=== PATIENT | female | born 1990 | race Caucasian/White ===

== ENCOUNTER 2019-11-10 17:36 | Emergency (ER) | payer BC, OTHER ==
--- NOTE | 2019-11-10 17:54 | ER Document Report ---
ED Medical Screen (RME) - General Chief Complaint: Vaginal Bleeding Stated Complaint: ABDOMINAL PAIN/VAGINAL BLEEDING Time Seen by Provider: 11/10/19 17:52 Primary Care Provider: DAKOTAH DUTTA [Primary Care Provider] - Follow up as needed Mode of Arrival: Ambulatory Information source: Patient Notes: 29-year-old female presented to ED for complaint of lower abdominal/pelvic pain. She states she is been having it for 4 days this is the fourth day. She states she is 1 para 0. She states she has had more headaches than normal. States she did fall yesterday but that is not any change. She states she did have a little bit of vaginal bleeding today. She states she thinks she is O+ but has not had a blood test here before. She does not smoke drink or use any drugs. She states she did have an ultrasound earlier in the and everything was okay at that time. I have greeted and performed a rapid initial assessment of this patient. A com prehensive ED assessment and evaluation of the patient, analysis of test results and completion of medical decision making process will be conducted by an additional ED providers. - Related Data Allergies/Adverse Reactions: No Known Allergies Allergy (Verified 07/27/12 15:27) Past Medical History - Immunizations Immunizations up to date: Yes Hx Diphtheria, Pertussis, Tetanus Vaccination: Yes Physical Exam - Vital signs Vitals: Temp Pulse Resp BP Pulse Ox 98.5 F 84 16 97/67 L 100 11/10/19 17:42 11/10/19 17:42 11/10/19 17:42 11/10/19 17:42 11/10/19 17:42 Course - Vital Signs Vital signs: Temp Pulse Resp BP Pulse Ox 98.5 F 84 16 97/67 L 100 11/10/19 17:42 11/10/19 17:42 11/10/19 17:42 11/10/19 17:42 11/10/19 17:42 Doctor's Discharge - Discharge Referrals: DAKOTAH DUTTA [Primary Care Provider] - Follow up as needed
--- NOTE | 2019-11-10 18:12 | ER Document Report ---
ED GI/ - General Mode of Arrival: Ambulatory Information source: Patient TRAVEL OUTSIDE OF THE [place] IN LAST 30 DAYS: No - Related Data Home Medications: prenatals <LANI CARR - Last Filed: 11/10/19 20:10> <RIKA DELGADO - Last Filed: 11/10/19 20:50> - General Chief Complaint: Abdominal Pain Stated Complaint: ABDOMINAL PAIN/VAGINAL BLEEDING Time Seen by Provider: 11/10/19 17:52 Primary Care Provider: [facility] [Provider Group] - Follow up as needed Notes: 29-year-old female who states she is 16 weeks presents to the emergency room with persistent pelvic pain for the past 4 days. States she has been seen for in the past by her RELAY SHOP TESTER and was told it was ligament pain however she states the pain is gotten progressively worse. Is also had a headache for 2 days. States that the is located at the base of her posterior scalp. She denies any head trauma or head injuries. Patient states she did have one dizzy episode yesterday where she fell to the ground landed on her knees denies hitting her head, denies hitting her belly. Also states she had 1 episode of spotting earlier today not currently bleeding. Denies nausea, vomiting, states her OB care is up-to-date with a normal recent ultrasound. Did not call her RELAY SHOP TESTER today. (LANI CARR) - Related Data Allergies/Adverse Reactions: No Known Allergies Allergy (Verified 11/10/19 17:54) Past Medical History - General Information source: Patient - Social History Smoking Status: Never Smoker Chew tobacco use (# tins/day): No Frequency of alcohol use: None Family History: Reviewed & Not Pertinent Patient has homicidal ideation: No - Immunizations Immunizations up to date: Yes Hx Diphtheria, Pertussis, Tetanus Vaccination: Yes <LANI CARR - Last Filed: 11/10/19 20:10> Review of Systems - Review of Systems Constitutional: No symptoms reported Cardiovascular: No symptoms reported Respiratory: No symptoms reported Gastrointestinal: No symptoms reported Female Genitourinary: , Vaginal bleeding, Other - Pelvic pain. denies: Vaginal discharge Hematologic/Lymphatic: No symptoms reported Neurological/Psychological: No symptoms reported -: Yes All other systems reviewed and negative <LANI CARR - Last Filed: 11/10/19 20:10> Physical Exam - General General appearance: Appears well, Alert In distress: Mild - Respiratory Respiratory status: No respiratory distress Chest status: Nontender Breath sounds: Normal Chest palpation: Normal - Cardiovascular Rhythm: Regular Heart sounds: Normal auscultation Murmur: No - Abdominal Inspection: Normal, Gravid female Distension: No distension. No: Distended bladder Bowel sounds: Normal Tenderness: Nontender. No: Guarding, Rebound Organomegaly: No organomegaly - Back Back: Normal, Nontender. No: CVA tenderness - Neurological Neuro grossly intact: Yes Cognition: Normal Orientation: AAOx4 [place] Coma Scale Eye Opening: Spontaneous Sourav Coma Scale Verbal: Oriented [place] Coma Scale Motor: Obeys Commands Sourav Coma Scale Total: 15 Speech: Normal Motor strength normal: LUE, RUE, LLE, RLE Sensory: Normal - Skin Skin Temperature: Warm Skin Moisture: Dry Skin Color: Normal <LANI CARR - Last Filed: 11/10/19 20:10> - Vital signs Vitals: Temp Pulse Resp BP Pulse Ox 98.5 F 84 16 97/67 L 100 11/10/19 17:42 11/10/19 17:42 11/10/19 17:42 11/10/19 17:42 11/10/19 17:42 - Neurological Notes: Negative nystagmus, negative Nylan Barany. Neurologically intact. (LANI CARR) Course - Laboratory Result Diagrams: 11/10/19 18:08 11/10/19 18:08 <LANI CARR - Last Filed: 11/10/19 20:10> - Laboratory Result Diagrams: 11/10/19 18:08 11/10/19 18:08 <RIKA DELGADO - Last Filed: 11/10/19 20:50> - Re-evaluation Re-evalutation: 11/10/19 19:46 Patient is resting comfortably currently pain-free. Reviewed lab results with patient. Aware ultrasound results are still pending. No dizziness since arrival to the emergency room. Neurologically intact. Ambulatory with a steady gait. 11/10/19 19:51 11/10/19 20:08 Patient's care was transferred to oncoming staff to Rika Delgado STYLIST ASSISTANT, (LANI CARR) 11/10/19 20:44 Patient does have a possible subchorionic hemorrhage. Her cervix is closed. She has a live intrauterine . Discussed these findings with the patient. She will follow-up with her [employer] TESTER in regards to this visit. Follow- up precautions were given. Verbal discharge instructions were given to the patient. They verbalized understanding. They are stable for discharge. (RIKA DELGADO) - Vital Signs Vital signs: Temp Pulse Resp BP Pulse Ox 98.5 F 84 16 97/67 L 100 11/10/19 17:48 11/10/19 17:42 11/10/19 17:42 11/10/19 17:42 11/10/19 17:42 - Laboratory Laboratory results interpreted by me: 11/10/19 11/10/19 11/10/19 18:08 18:08 18:08 RDW 15.5 H Sodium 134.2 L BUN 6 L Creatinine 0.47 L Serum HCG, Qual POSITIVE H Urine Protein Urine Urobilinogen Ur Leukocyte Esterase 11/10/19 18:08 RDW Sodium BUN Creatinine Serum HCG, Qual Urine Protein 30 H Urine Urobilinogen 2.0 H Ur Leukocyte Esterase TRACE H Discharge <LANI CARR - Last Filed: 11/10/19 20:10> <RIKA DELGADO - Last Filed: 11/10/19 20:50> - Discharge Clinical Impression: Pelvic pain during Headache Qualifiers: Headache type: unspecified Headache chronicity pattern: acute headache Intractability: not intractable Qualified Code(s): R51 - Headache Subchorionic hemorrhage Qualifiers: Fetus number: single or unspecified fetus Trimester: first trimester Qualified Code(s): O41.8X10 - Other specified disorders of amniotic fluid and membranes, first trimester, not applicable or unspecified; O46.8X1 - Other antepartum hemorrhage, first trimester Condition: Stable Disposition: HOME, SELF-CARE Instructions: Pelvic Pain in ([facility]) Additional Instructions: Pelvic rest. Do not place anything in your vagina. No vigorous exercise. Take Tylenol as needed for headache and pelvic pain. Follow-up with your [employer]AY SHOP TESTER tomorrow. Return to the emergency room for any new or worsening symptoms. Referrals: [facility] [Provider Group] - Follow up tomorrow
[2019-11-10] MEDS ORDERED: ACETAMINOPHEN 325 MG TABLET PO ONE (18:24)
[2019-11-10 18:32] LABS: APPEARANCE,URINE CLOUDY; BILIRUBIN,URINE NEGATIVE (NEGATIVE); COLOR,URINE AMBER; GLUCOSE, URINE NEGATIVE (NEGATIVE); KETONES,URINE NEGATIVE (NEGATIVE); LEUKOCYTE ESTERASE,URINE TRACE (NEGATIVE); NITRITE,URINE NEGATIVE (NEGATIVE); PROTEIN,URINE 30 mg/dL (NEGATIVE); URINE SPECIFIC GRAVITY 1.029
[2019-11-10 18:35] LABS: ABSOLUTE EOSINOPHILS # (AUTO) 0.1 10^3/uL (0.0-0.6); ABSOLUTE LYMPHOCYTES (AUTO) 2.2 10^3/uL (0.5-4.7); ABSOLUTE MONOCYTES (AUTO) 0.4 10^3/uL (0.1-1.4); ABSOLUTE NEUT (AUTO) 6.2 10^3/uL (1.7-8.2); BASOPHILS % (AUTO) 0.5 % (0-2); EOSINOPHILS % (AUTO) 0.8 % (0-6); HEMATOCRIT 36.5 % (36.0-47.0); HEMOGLOBIN 12.6 g/dL (12.0-15.5); LYMPHOCYTES % (AUTO) 24.4 % (13-45); MEAN CORPUSCULAR HEMOGLOBIN 30.5 pg (27.0-33.4); MEAN CORPUSCULAR HGB CONC 34.6 g/dL (32.0-36.0); MEAN CORPUSCULAR VOLUME 88 fl (80-97); MONOCYTES % (AUTO) 4.5 % (3-13); PLATELET COUNT 285 10^3/uL (150-450); RED BLOOD COUNT 4.14 10^6/uL (3.72-5.28); RED CELL DISTRIBUTION WIDTH 15.5 % (11.5-14.0); SEGMENTED NEUTROPHILS % (AUTO) 69.8 % (42-78); TOTAL CELLS COUNTED % (AUTO) 100 %; WHITE BLOOD COUNT 8.9 10^3/uL (4.0-10.5)
[2019-11-10 18:37] LABS: ALBUMIN 3.8 g/dL (3.5-5.0); ALKALINE PHOSPHATASE 87 U/L (38-126); ANION GAP 5 (5-19); ASPARTATE AMINO TRANSFERASE 15 U/L (14-36); BILIRUBIN,TOTAL 0.3 mg/dL (0.2-1.3); BLOOD UREA NITROGEN 6 mg/dL (7-20); CALCIUM 9.6 mg/dL (8.4-10.2); CARBON DIOXIDE 26 mmol/L (22-30); CHLORIDE 103 mmol/L (98-107); GLUCOSE 91 mg/dL (75-110); POTASSIUM 4.2 mmol/L (3.6-5.0); TOTAL PROTEIN 6.9 g/dL (6.3-8.2)
--- NOTE | 2019-11-10 20:39 | RADIOLOGY REPORT (SQ) ---
EXAM DESCRIPTION: US LIMITED COMPLETED DATE/TME: 11/10/2019 18:19 CLINICAL HISTORY: 29 years, Female, pelvic pain COMPARISON: None. EXAM DESCRIPTION: CLINICAL HISTORY: pelvic pain COMPARISON: None. FINDINGS: [Transabdominal ] [ ] images of the pelvis were submitted. Single live IUP is seen. Position is variable. There is a heterogeneous focus anteriorly, suggesting subchorionic hemorrhage. Right ovary measures 32 x 23 x 26 mm and is unremarkable in appearance. Left ovary measures 23 x 21 x 20 mm and is unremarkable in appearance. Cervix length is 26 mm. Cervix is closed. heart rate is 158 bpm. Estimated gestational age by ultrasound is 16 weeks one day. IMPRESSION: Possible poorly defined subchorionic hemorrhage. Follow-up is recommended. Single live IUP as above.UCHE by ultrasound is 04/25/2020.
[2019-11-10 20:57] VITALS: BP 97/55
== END 2019-11-10 20:58 | disposition home or self-care (01) ==
LOC: ER 17:36
DX: O26.891 Other specified pregnancy related conditions, first trimester (principal); R10.2 Pelvic and perineal pain; R51 Headache; O46.8X1 Other antepartum hemorrhage, first trimester; Z3A.00 Weeks of gestation of pregnancy not specified
CPT/HCPCS: 36415; 76815; 80053; 81001; 84702; 84703; 85025; 86900; 86901; 99284

== ENCOUNTER 2020-04-14 21:19 | Outpatient (CLI) | payer OTHER ==
[2020-04-14] MEDS ORDERED: RINGERS SOLUTION,LACTATED 1,000 ML IV ONE (21:55)
[2020-04-14] MEDS ORDERED: ONDANSETRON HCL INJ/PF 4 MG/2 ML SDV IV ONE (21:56)
[2020-04-14] MEDS ORDERED: ONDANSETRON HCL INJ/PF 4 MG/2 ML SDV ONE ×2 (22:00→22:07)
[2020-04-14 22:08] LABS: APPEARANCE,URINE CLOUDY; BILIRUBIN,URINE NEGATIVE (NEGATIVE); COLOR,URINE AMBER; GLUCOSE, URINE NEGATIVE (NEGATIVE); KETONES,URINE NEGATIVE (NEGATIVE); LEUKOCYTE ESTERASE,URINE MODERATE (NEGATIVE); NITRITE,URINE POSITIVE (NEGATIVE); PROTEIN,URINE 30 mg/dL (NEGATIVE); URINE SPECIFIC GRAVITY 1.018
[2020-04-14 22:29] LABS: URINE AMPHETAMINES SCREEN NEGATIVE; URINE BARBITURATES SCREEN NEGATIVE; URINE BENZODIAZEPINES SCREEN NEGATIVE; URINE COCAINE SCREEN NEGATIVE; URINE MARIJUANA (THC) SCREEN NEGATIVE; URINE METHADONE SCREEN NEGATIVE; URINE PHENCYCLIDINE SCREEN NEGATIVE
[2020-04-14] MEDS ORDERED: CEFTRIAXONE 2 GM/D5W RTU 2 GM/50 ML RTUPB IV ONE (23:00)
[2020-04-14] MEDS ORDERED: CEFTRIAXONE INJ 1000 MG VIAL IV ONE (23:03)
[2020-04-14] MEDS ORDERED: CEFTRIAXONE INJ 1000 MG VIAL ONE (23:06)
== END 2020-04-15 00:37 | disposition home or self-care (01) ==
LOC: LC 21:19
PROVIDERS: ATTEND Obstetrics & Gynecology
DX: O23.43 Unspecified infection of urinary tract in pregnancy, third trimester (principal); O99.283 Endocrine, nutritional and metabolic diseases complicating pregnancy, third trimester; E86.0 Dehydration; Z3A.38 38 weeks gestation of pregnancy
CPT/HCPCS: 59025; 87086; 81005; 80307; J0696 ×2; J2405

== ENCOUNTER 2020-04-15 15:06 | Outpatient (CLI) | payer OTHER ==
[2020-04-15] MEDS ORDERED: RINGERS SOLUTION,LACTATED 1,000 ML IV PRN (15:40)
[2020-04-15] MEDS ORDERED: ONDANSETRON HCL 8 MG TABLET PO ONE (15:40)
[2020-04-15] MEDS ORDERED: ONDANSETRON HCL 8 MG TABLET ONE (15:42)
[2020-04-15 15:49] LABS: APPEARANCE,URINE SLIGHTLY-CLOUDY; BILIRUBIN,URINE NEGATIVE (NEGATIVE); COLOR,URINE YELLOW; GLUCOSE, URINE NEGATIVE (NEGATIVE); KETONES,URINE NEGATIVE (NEGATIVE); LEUKOCYTE ESTERASE,URINE NEGATIVE (NEGATIVE); NITRITE,URINE NEGATIVE (NEGATIVE); PROTEIN,URINE NEGATIVE (NEGATIVE); URINE SPECIFIC GRAVITY 1.013
[2020-04-15 16:06] LABS: URINE AMPHETAMINES SCREEN NEGATIVE; URINE BARBITURATES SCREEN NEGATIVE; URINE BENZODIAZEPINES SCREEN NEGATIVE; URINE COCAINE SCREEN NEGATIVE; URINE MARIJUANA (THC) SCREEN NEGATIVE; URINE METHADONE SCREEN NEGATIVE; URINE PHENCYCLIDINE SCREEN NEGATIVE
--- NOTE | 2020-04-15 16:38 | Non Stress Test Report ---
Non Stress Test Datetime Report Generated by CPN: 04/15/2020 16:38 DEMOGRAPHIC Test Number: 1 EGA NST: 38.6 EGA NST: 38.5 INDICATION Indication for Study (NST) Other: Dehydration Indication for Study (NST) Other: IUP @ 38.6 wks VITAL SIGNS Temperature - NST: 97.9 Temperature - NST: 98.0 Pulse - NST: 78 Pulse - NST: 93 RESP - NST: 18 RESP - NST: 16 NBPSYS NST: 85 NBPSYS NST: 101 NBPDIA NST: 51 NBPDIA NST: 70 MONITORING Monitor Explained: Monitor Explained; Test Explained; Patient Verbalized Understanding Monitor Explained: Monitor Explained; Test Explained; Patient Verbalized Understanding Time on Monitor: 04/15/2020 15:20 Time on Monitor: 04/14/2020 21:37 Time off Monitor: 04/15/2020 16:21 Time off Monitor: 04/15/2020 00:29 NST Duration: 61 NST Duration: 172 NST INTERVENTIONS NST Interventions: IV Fluids; Reposition Patient NST Interventions: IV Fluids; Reposition Patient Physician Notified NST: Madina James MD Physician Notified NST: Dr. Casanova BABY A: [id number] BABY A Movement : Present Movement : Present Contraction Frequency : Irregular Contraction Frequency : 1-6 FHR Baseline : 115 FHR Baseline : 130 Accelerations : 15X15 Accelerations : 15X15 Decelerations : None Decelerations : None Variability : Moderate 6-25bpm Variability : Moderate 6-25bpm NST Review: Meets Criteria for Reactive NST NST Review: Meets Criteria for Reactive NST NST Review and Verified By : TAMANNA Leahy NST Review and Verified By : TAMANNA Goddard Results: Reactive NST Results: Reactive NST REPORT Report Trigger: Send Report
== END 2020-04-15 16:33 | disposition home or self-care (01) ==
LOC: LC 15:06
PROVIDERS: ATTEND Obstetrics & Gynecology Gynecology
DX: O99.283 Endocrine, nutritional and metabolic diseases complicating pregnancy, third trimester (principal); E86.0 Dehydration; O23.43 Unspecified infection of urinary tract in pregnancy, third trimester; Z3A.28 28 weeks gestation of pregnancy; Z02.83 Encounter for blood-alcohol and blood-drug test
CPT/HCPCS: 59025; 81005; 80307; 84112; S0119

== ENCOUNTER 2020-04-22 07:16 | Inpatient (IN) | payer OTHER ==
[2020-04-19 10:20] LABS: ABSOLUTE LYMPHOCYTES (AUTO) 1.7 10^3/uL (0.5-4.7); ABSOLUTE MONOCYTES (AUTO) 0.4 10^3/uL (0.1-1.4); BASOPHILS % (AUTO) 0.3 % (0-2); EOSINOPHILS % (AUTO) 0.3 % (0-6); HEMATOCRIT 28.1 % (36.0-47.0); HEMOGLOBIN 9.4 g/dL (12.0-15.5); LYMPHOCYTES % (AUTO) 27.5 % (13-45); MEAN CORPUSCULAR HEMOGLOBIN 27.3 pg (27.0-33.4); MEAN CORPUSCULAR HGB CONC 33.5 g/dL (32.0-36.0); MEAN CORPUSCULAR VOLUME 81 fl (80-97); MONOCYTES % (AUTO) 6.5 % (3-13); PLATELET COUNT 289 10^3/uL (150-450); RED BLOOD COUNT 3.45 10^6/uL (3.72-5.28); RED CELL DISTRIBUTION WIDTH 13.7 % (11.5-14.0); SEGMENTED NEUTROPHILS % (AUTO) 65.4 % (42-78); TOTAL CELLS COUNTED % (AUTO) 100 %; WHITE BLOOD COUNT 6.1 10^3/uL (4.0-10.5)
[2020-04-19 10:31] LABS: APPEARANCE,URINE SLIGHTLY-CLOUDY; BILIRUBIN,URINE NEGATIVE (NEGATIVE); COLOR,URINE AMBER; GLUCOSE, URINE NEGATIVE (NEGATIVE); KETONES,URINE NEGATIVE (NEGATIVE); LEUKOCYTE ESTERASE,URINE NEGATIVE (NEGATIVE); NITRITE,URINE NEGATIVE (NEGATIVE); PROTEIN,URINE 30 mg/dL (NEGATIVE)
[2020-04-19 12:20] LABS: URINE AMPHETAMINES SCREEN NEGATIVE; URINE BARBITURATES SCREEN NEGATIVE; URINE BENZODIAZEPINES SCREEN NEGATIVE; URINE COCAINE SCREEN NEGATIVE; URINE MARIJUANA (THC) SCREEN NEGATIVE; URINE METHADONE SCREEN NEGATIVE; URINE PHENCYCLIDINE SCREEN NEGATIVE
[2020-04-22] MEDS ORDERED: RINGERS SOLUTION,LACTATED 1,000 ML IV PRN (08:14)
[2020-04-22] MEDS ORDERED: CEFAZOLIN 2 GM/D5W RTU 2 GM/50 ML RTUPB IV PRN (08:49)
[2020-04-22] MEDS: RINGERS SOLUTION,LACTATED 1,000 ML IV PRN ×2 (10:00→18:15)
[2020-04-22] MEDS ORDERED: PENICILLIN G POTASSIUM 5,000,000 UNIT in DEXTROSE 5%-WATER 100 ML IV ONE (10:53)
[2020-04-22] MEDS ORDERED: OXYTOCIN/0.9 % SODIUM CHLORIDE 30 UNIT/500 ML RTUINJ IV PRN (10:56)
[2020-04-22] MEDS ORDERED: PENICILLIN G-K 5 MILLION UNIT VIAL ONE (11:11)
--- NOTE | 2020-04-22 11:19 | L&D Progress Notes ---
PROGRESS NOTES Datetime Report Generated by CPN: 04/22/2020 11:19 PROGRESS NOTE Impression: Reassuring Heart Rate Plan: Induction Comment: at 39.6 wks, +GBS, was scheduled for a Primary this morning d/t breech presentation. Pt is Vtx on spot check u/s per Dr Casanova. Will keep patient but move to IOL since she is vertx. Pt [address] Casanova. Plan to start PCN prophlaxis then either Pitocin or Cytotec depending on contraction pattern. LAST VAGINAL EXAM-NURSING Nursing Exam Dilitation: 1.0 Nursing Exam Effacement: 50 Nursing Exam Station: -2 MEMBRANES Membranes: Intact FETUS A FHR - Baseline: 130 Monitoring: External US Variability: Moderate 6-25bpm Accelerations: 15X15 Decelerations: None FHR Category: Category I SIGNATURE SIGNATURE: [id number] Assignment: Marlen Casanova MD Signature: with User ID: [email or web address] : with User ID: Rosemarie
[2020-04-22 11:27] LABS: ABSOLUTE LYMPHOCYTES (AUTO) 1.5 10^3/uL (0.5-4.7); ABSOLUTE MONOCYTES (AUTO) 0.4 10^3/uL (0.1-1.4); ABSOLUTE NEUT (AUTO) 5.1 10^3/uL (1.7-8.2); BASOPHILS % (AUTO) 0.4 % (0-2); EOSINOPHILS % (AUTO) 0.2 % (0-6); HEMATOCRIT 26.3 % (36.0-47.0); HEMOGLOBIN 8.9 g/dL (12.0-15.5); LYMPHOCYTES % (AUTO) 21.7 % (13-45); MEAN CORPUSCULAR HEMOGLOBIN 27.3 pg (27.0-33.4); MEAN CORPUSCULAR VOLUME 80 fl (80-97); MONOCYTES % (AUTO) 5.9 % (3-13); PLATELET COUNT 278 10^3/uL (150-450); RED BLOOD COUNT 3.28 10^6/uL (3.72-5.28); RED CELL DISTRIBUTION WIDTH 13.6 % (11.5-14.0); SEGMENTED NEUTROPHILS % (AUTO) 71.8 % (42-78); TOTAL CELLS COUNTED % (AUTO) 100 %; WHITE BLOOD COUNT 7.1 10^3/uL (4.0-10.5)
--- NOTE | 2020-04-22 14:08 | L&D Progress Notes ---
PROGRESS NOTES Datetime Report Generated by CPN: 04/22/2020 14:08 PROGRESS NOTE Impression: Reassuring Heart Rate Procedures: Sterile Vag Exam Procedures- Other: Nehemiah's catheter placed Plan: Induction Vital Signs : Reviewed; Within Normal Limits Comment: PCN x 1 dose infused, pt did eat lunch. Will now start IOL process. VE 1-2/50/-2. Cerna's cath placed w/ 80 ml fluid in each bulb. Pt tolerated well. Will now start Pitocin. Pt may have IV pain medication if desires, then an epidural when cervical change is made. Attending is Dr Casanova and agrees with plan of care VAGINAL EXAM Dilatation: 1-2 Effacement: 50 Station: -2 Contractions: 1-2 LAST VAGINAL EXAM-NURSING Nursing Exam Dilitation: 2.0 Nursing Exam Effacement: 50 Nursing Exam Station: -2 MEMBRANES Membranes: Intact FETUS A FHR - Baseline: 135 Monitoring: External US Variability: Moderate 6-25bpm Accelerations: 15X15 Decelerations: None FHR Category: Category I SIGNATURE SIGNATURE: [id number];[id number] Assignment: Marlen Casanova MD Signature: with User ID: Rosemarie : with User ID: Rosemarie
[2020-04-22] MEDS ORDERED: MISOPROSTOL 0.2 MG TABLET ONE (14:43)
[2020-04-22] MEDS ORDERED: OXYTOCIN 10 UNIT/ML VIAL ONE (14:43)
[2020-04-22] MEDS ORDERED: LIDOCAINE 1% INJ-PF (10 MG/ML) 30 ML SDV ONE (14:44)
[2020-04-22] MEDS ORDERED: OXYTOCIN/0.9 % SODIUM CHLORIDE 30 UNIT/500 ML RTUINJ ONE (14:44)
[2020-04-22] MEDS ORDERED: EPHEDRINE SULFATE INJ 50 MG/1 ML AMPULE ONE (19:27)
[2020-04-22] MEDS ORDERED: FENTANYL/BUPIVACAINE/NS/PF 300 MCG/150 ML RTUINJ EPI ONE (19:27)
[2020-04-22] MEDS ORDERED: ROPIVACAINE HCL 0.2% INJ/PF (2 MG/ML) 20 ML SDV ONE (19:28)
[2020-04-23] MEDS ORDERED: GLYCERIN/WITCH HAZEL LEAF 1 EACH MED..WIPE TP PRN (01:52)
[2020-04-23] MEDS ORDERED: ACETAMINOPHEN WITH CODEINE #3 TABLET PO PRN ×2 (01:52)
[2020-04-23] MEDS ORDERED: PROMETHAZINE HCL INJ 25 MG/1 ML VIAL IV PRN (01:52)
[2020-04-23] MEDS ORDERED: MAGNESIUM HYDROXIDE SUSP 30 ML UDCUP PO PRN (01:52)
[2020-04-23] MEDS ORDERED: MEASLES,MUMPS&RUBELLA VACC/PF 0.5 ML VIAL SUBCUT PRN (01:52)
[2020-04-23] MEDS ORDERED: ACETAMINOPHEN 325 MG TABLET PO PRN (01:52)
[2020-04-23] MEDS ORDERED: PSEUDOEPHEDRINE HCL 30 MG TABLET PO PRN (01:52)
[2020-04-23] MEDS ORDERED: PROMETHAZINE HCL 25 MG SUPP.RECT PR PRN (01:52)
[2020-04-23] MEDS ORDERED: ACETAMINOPHEN 650 MG SUPP.RECT PR PRN (01:52)
[2020-04-23] MEDS ORDERED: ZOLPIDEM TARTRATE 5 MG TABLET PO PRN (01:52)
[2020-04-23] MEDS ORDERED: OXYTOCIN/0.9 % SODIUM CHLORIDE 30 UNIT/500 ML RTUINJ IV PRN (01:52)
[2020-04-23] MEDS ORDERED: BENZOCAINE/MENTHOL AEROSOL SPRAY 56 ML TOP PRN (01:52)
[2020-04-23] MEDS ORDERED: PROMETHAZINE HCL 25 MG TABLET PO PRN (01:52)
[2020-04-23] MEDS ORDERED: DIPH/PERTUSS(ACELL)/TETANUS VAC/PF 0.5 ML SYR (>=10YO) IM PRN (01:52)
[2020-04-23] MEDS ORDERED: DIPHENHYDRAMINE HCL 25 MG CAPSULE PO PRN (01:52)
[2020-04-23] MEDS ORDERED: NA PHOS,M-B/NA PHOS,DI-BA (ADULT) 133 ML ENEMA PR PRN (01:52)
[2020-04-23] MEDS ORDERED: DIBUCAINE 1% OINTMENT 28 GM TP PRN (01:52)
[2020-04-23] MEDS ORDERED: IBUPROFEN 800 MG TABLET PO SCH (02:00)
--- NOTE | 2020-04-23 02:50 | Birth Certificate Data ---
Cert Data Datetime Report Generated by CPN: 04/23/2020 02:50 CERTIFICATE DATA Delivery Provider: Marlen Casanova MD (04/14/2020 22:44:Radha Wilson RN) 47a. Care: Yes (04/14/2020 22:44:Sylvia Barry RN) 47b. Date of First Visit: 09/23/2019 00:00 (04/14/2020 22:44:Madyson Lock RN) 47c. Date of Last Visit: 04/16/2020 00:00 (04/14/2020 22:44:Madyson Lock RN) 47d. Number of Visits: 12 (04/14/2020 22:44:Madyson Lock RN) 48a. Number of Prev Live Births: 0 (04/14/2020 22:44:Sylvia Barry RN) 48b. Now Livin (04/14/2020 22:44:Sylvia Barry RN) 48c. Live Births Now : 0 (04/14/2020 22:44:QS system process) 48e. Losses: 0 (04/14/2020 22:44:Sylvia Barry RN) RISK FACTORS IN THIS 49a. Diabetes: No (04/14/2020 22:44:Sylvia Barry RN) 49b. Hypertension: No (04/14/2020 22:44:Sylvia Barry RN) 49c. Previous Births: 0 (04/14/2020 22:44:Sylvia Barry RN) 49d. Stillborns: No (04/14/2020 22:44:Sylvia Barry RN) 49d. IUGR: No (04/14/2020 22:44:Sylvia Barry RN) 49e. Infertility Treatment: No (04/14/2020 22:44:Sylvia Barry RN) 49f. Previous Cesareans: 0 (04/14/2020 22:44:Sylvia Barry RN) Mother's Height 50b. Height Inches: 63 (04/23/2020 01:26:QS system process) Mother's Weight 51a. Pre- Weight (lbs): 173 (04/14/2020 22:44:Madyson Lock RN) 51b. Weight at Delivery (lbs): 158 (04/23/2020 01:26:QS system process) 52. Dt Last Normal Menses Began: 07/18/2019 00:00 (04/14/2020 22:44:Sylvia Barry RN) Infections Present/Treated 53a. Gonorrhea: No (04/14/2020 22:44:Sylvia Barry RN) Results this Hospital Visit : Negative (04/14/2020 22:44:Sylvia Barry RN) 53b. Syphilis: No (04/14/2020 22:44:Sylvia Barry RN) 53c. Chlamydia: No (04/14/2020 22:44:Sylvia Barry RN) Results this Hospital Visit: Negative (04/14/2020 22:44:Sylvia Barry RN) 53d. Hepatitis B: No (04/14/2020 22:44:Sylvia Barry RN) Results this Hospital Visit: Negative (04/14/2020 22:44:Sylvia Barry RN) 53e. Hepatitis C: Negative (04/14/2020 22:44:Sylvia Barry RN) 53h. Mother Tested for HBsAG: Yes (04/14/2020 22:44:Sylvia Barry RN) 53i. Date Tested: 09/23/2019 00:00 (04/14/2020 22:44:Sylvia Barry RN) 53j. Test Result: Negative (04/14/2020 22:44:Sylvia Barry RN) Obstetric Procedures 54a, b, c. Obstetric Procedures: Ultrasound; NST (04/14/2020 22:44:Madyson Lock RN) Cigarette Smoking Cigarette Smoking: Never Smoker. [id number] (04/14/2020 22:44:Sylvia Barry RN) 55a. 3 Months Before Preg - Ci (04/14/2020 22:44:Sylvia Barry RN) 55a. Packs: 0 (04/14/2020 22:44:Sylvia Barry RN) 55b. 1st Trimester of Preg- Ci (04/14/2020 22:44:Sylvia Barry RN) 55b. Packs: 0 (04/14/2020 22:44:Sylvia Barry RN) 55c. 2nd Trimester of Preg- Ci (04/14/2020 22:44:Sylvia Barry RN) 55c. Packs: 0 (04/14/2020 22:44:Sylvia Barry RN) 55d. 3rd Trimester of Preg- Ci (04/14/2020 22:44:Sylvia Barry RN) 55d. Packs: 0 (04/14/2020 22:44:Sylvia Barry RN) Onset of Labor 56a. PROM >12 Hrs: 6.47 (04/14/2020 22:44:QS system process) 56b. Precipitous Labor <3 Hrs: 6 (04/14/2020 22:44:QS system process) 56c. Prolonged Labor > 20 Hrs: 6 (04/14/2020 22:44:QS system process) 57a. Induction of Labor: Induction (04/14/2020 22:44:Madyson Lock RN) 57a. Induction of Labor: Other (04/14/2020 22:44:Madyson Lock RN) 57a. Induction of Labor: Cook's catheter (04/14/2020 22:44:Madyson Lock RN) 57c. Non-Vertex Presentation A: Vertex (04/14/2020 22:44:Radha Wilson RN) 57d. Steroids - Lung Mat: None (04/14/2020 22:44:Madyson Lock RN) 57d. Steroids - Lung Mat: Not Applicable (04/14/2020 22:44:Madyson Lock RN) 57e. Antibiotics During Labor: 04/22/2020 23:48 (04/14/2020 22:44:Radha Wilson RN) 57f. Mat [place] or Temp >100.4: 98.6 (04/14/2020 22:44:Radha Wilson RN) 57g. Moderate/Heavy Meconium: Clear (04/22/2020 18:53:Madyson Lock RN) 57h. Intolerance of Labor: N/A (04/14/2020 22:44:Radha Wilson RN) : N/A (04/14/2020 22:44:Sylvia Barry RN) 57i. Epidural/Spinal Anesthesia: Epidural (04/14/2020 22:44:Radha Wilson RN) Method of Delivery 58a. Forceps - Unsuccessful A: N/A (04/14/2020 22:44:Radha Wilson RN) 58b. Vacuum - Unsuccessful A: N/A (04/14/2020 22:44:Radha Wilson RN) 58c. Presentation at 58c. Presentation at - A : Vertex (04/14/2020 22:44:Radha Wilson RN) 58c. Presentation at - A : N/A (04/14/2020 22:44:Radha Wilson RN) 58c. Presentation at - A : Cephalic (04/22/2020 18:51:Madyson Lock RN) Final Route and Method of Del 58d. Baby A Route/Delivery: Vaginal (04/14/2020 22:44:Radha Wilson RN) 58e. Trial of Labor Attempted: No (04/14/2020 22:44:Madyson Lock RN) 58e. Trial of Labor Attempted A: N/A (04/14/2020 22:44:Madyson Lock RN) 58e. Trial of Labor Attempted B: N/A (04/14/2020 22:44:Radha Wilson RN) Maternal Morbidity 59b. 3rd or 4th Degree Lacs: Perineal (04/14/2020 22:44:Marlen Casanova, MD) Birthweight Baby A: 3150 (04/14/2020 22:44:Roseline Huerta RN) 60a. Pounds : 6 (04/14/2020 22:44:QS system process) 60b. Ounces: 15 (04/14/2020 22:44:QS system process) 61. GA at Delivery Baby A: 40.0 (04/14/2020 22:44:Radha Wilson RN) : Full Term- 39- 40.6 Weeks (04/14/2020 22:44:QS system process) 62a. 5 Minute Baby A: 9 (04/14/2020 22:44:QS system process)
--- NOTE | 2020-04-23 02:50 | Delivery Summary ---
Del Sum A-C Datetime Report Generated by CPN: 04/23/2020 02:50 DELIVERY PERSONNEL DELIVERY PERSONNEL: [id number] Delivery Doctor:: Marlen Casanova MD Labor and Delivery Nurse:: Sylvia Barry RNditch repairer Nurse:: Radha Wilson RN Nursery Nurse:: Roseline Huerta RN Nursery Nurse:: Jocy Carbajal RN Primary Care Md/[employer] PROFESSOR: Pat Iverson, CHEMISTRY LECTURER MATERNAL INFORMATION Delivery Anesthesia: Epidural Medications After Delivery: Pitocin Bolus-Please Comment Delivery QBL: 100 Maternal Complications: None Provider Comments: Called to patients room as she was complete and +3. She pushed through a few contractions and delivered a viable female infant. A nuchal x1 was noted but was too tight to reduce. Delivered through. was vigorous and cord clamping delayed for 30 seconds. Both Mother and stable after delivery. placed skin to skin with Mom. LABOR SUMMARY EDC: 04/23/2020 00:00 No. Babies in Womb: 1 Attempted: No Labor Anesthesia: Epidural LABOR INFORMATION Reason for Induction: Other Reason for Induction- Other: Unstable lie Onset of Labor: 04/22/2020 18:53 Complete Dilatation: 04/23/2020 01:00 Cervical Ripening Agents: Other Other Ripening Agents: Cook's catheter Oxytocin: Induction Group B Beta Strep: positive Antibiotics # of Doses: 4 Antibiotics Time of Last Dose: 04/22/2020 23:48 Name of Antibiotic Given: Penicillin Steroids Given: None Reason Steroids Not Administered: Not Applicable MEMBRANES Membranes Rupture Method: Artificial Rupture of Membranes: 04/22/2020 18:53 Length of Rupture (hr): 6.47 Amniotic Fluid Color: Clear Amniotic Fluid Amount: Large Amniotic Fluid Odor: None STAGES OF LABOR Stage 1 hr: 6 Stage 1 min: 7 Stage 2 hr: 0 Stage 2 min: 21 Stage 3 hr: 0 Stage 3 min: 4 Total Time in Labor hr: 6 Total Time in Labor min: 32 VAGINAL DELIVERY Episiotomy: None Laceration #1: Perineal Laceration Extension #1: Second Degree Laceration Repair: Yes Laceration Repair Note: 2-0 chromic for repair in a layered fashion Sponge Count Correct: Yes Sharps Count Correct: Yes CSECTION DELIVERY Primary Indication: N/A Secondary Indication: N/A CSection Incidence: N/A Labor: N/A Elective: N/A CSection Incision: N/A BABY A INFORMATION Infant Delivery Date/Time: 04/23/2020 01:21 Method of Delivery: Vaginal Nurse Controlled Delivery: No Born in Route : No : N/A Forceps: N/A Vacuum Extraction: N/A Shoulder Dystocia : No PRESENTATION/POSITION BABY A Presentation: Cephalic Cephalic Presentation: Vertex Vertex Position: Right Occipital Anterior Breech Presentation: N/A PLACENTA INFORMATION BABY A Placenta Delivery Time : 04/23/2020 01:25 Placenta Method of Delivery: Spontaneous Placenta Status: Delivered SCORES BABY A Heart Rate 1 min: >100 bpm Resp Effort 1 min: Slow, Irregular Reflex Irritability 1 min: Cough or Sneeze or Pulls Away Muscle Tone 1 min: Some Flexion of Extremities Color 1 min: Body [place], Extremities Blue SCORE 1 MIN: 7 Heart Rate 5 min: >100 bpm Resp Effort 5 min: Good Cry Reflex Irritability 5 min: Cough or Sneeze or Pulls Away Muscle Tone 5 min: Active Motion Color 5 min: Body [place], Extremities Blue Resuscitation Effort 5 min: Tactile Stimulation SCORE 5 MIN: 9 INFANT INFORMATION BABY A Gestational Age at Delivery: 40.0 Gestational Status: Full Term- 39- 40.6 Weeks Infant Outcome : Liveborn Infant Condition : Stable Sex: Female IDENTIFICATION BABY A Verification Date/Time: 04/23/2020 01:28 ID Band Number: [id number] Mother's Name Verified: Yes Infant RN Verifying Infant: K Garrett, RN/ T Gentilin, RN WEIGHT/LENGTH BABY A Birthweight (gm): 3150 Weight (lb): 6 Infant Weight (oz): 15 Infant Length (in): 19.50 Infant Length (cm): 49.53 CORD INFORMATION BABY A No. Cord Vessels: 3 Nuchal Cord : Around Neck x1, Tight Cord Blood Taken: Yes-For Storage (Mom's Blood type +) Suction: None ASSESSMENT BABY A Infant Complications: None Physical Findings at Delivery: Within Normal Limits Respirations: Appears Normal Skin to Skin: Yes Transferred To: Remains with Mother BABY B INFORMATION : N/A SIGNATURES Signature: with User ID: Landen : with User ID: [email or web address]
[2020-04-23] MEDS: IBUPROFEN 800 MG TABLET PO SCH ×3 (06:49→22:09)
[2020-04-23] MEDS: DOCUSATE SODIUM 100 MG CAPSULE PO SCH ×2 (09:13→17:47)
[2020-04-23] MEDS: PRENATAL VITAMIN W DHA CAPSULE PO SCH (09:13)
[2020-04-23] MEDS: FERROUS SULFATE 325 MG TABLET PO SCH ×2 (09:13→17:48)
[2020-04-23] MEDS: SENNOSIDES/DOCUSATE 8.6-50 MG 1 EACH TABLET PO SCH (09:13)
[2020-04-23] MEDS: FAMOTIDINE 20 MG TABLET PO SCH ×2 (09:14→22:09)
[2020-04-23] MEDS: PENICILLIN G POTASSIUM 2,500,000 UNIT in DEXTROSE 5%-WATER 50 ML IV SCH (09:31)
[2020-04-24] MEDS: IBUPROFEN 800 MG TABLET PO SCH (05:27)
[2020-04-24 07:20] LABS: HEMATOCRIT 25.8 % (36.0-47.0); HEMOGLOBIN 8.4 g/dL (12.0-15.5); MEAN CORPUSCULAR HEMOGLOBIN 26.6 pg (27.0-33.4); MEAN CORPUSCULAR HGB CONC 32.7 g/dL (32.0-36.0); MEAN CORPUSCULAR VOLUME 82 fl (80-97); PLATELET COUNT 253 10^3/uL (150-450); RED BLOOD COUNT 3.16 10^6/uL (3.72-5.28); RED CELL DISTRIBUTION WIDTH 14.1 % (11.5-14.0); WHITE BLOOD COUNT 11.1 10^3/uL (4.0-10.5)
[2020-04-24] MEDS: FAMOTIDINE 20 MG TABLET PO SCH (11:12)
[2020-04-24] MEDS: DOCUSATE SODIUM 100 MG CAPSULE PO SCH (11:12)
[2020-04-24] MEDS: SENNOSIDES/DOCUSATE 8.6-50 MG 1 EACH TABLET PO SCH (11:12)
[2020-04-24] MEDS: FERROUS SULFATE 325 MG TABLET PO SCH (11:12)
[2020-04-24] MEDS: PRENATAL VITAMIN W DHA CAPSULE PO SCH (11:12)
--- NOTE | 2020-04-24 11:14 | PDOC DISCHARGE SUMMARY ---
Impression - Admit/DC Date/PCP Admission Date/Primary Care Provider: 04/22/20 07:16 Discharge Date: 04/24/20 - Discharge Diagnosis (1) Active labor Is this a current diagnosis for this admission?: Yes (2) Normal vaginal delivery Is this a current diagnosis for this admission?: Yes - Additional Information Discharge Diet: Regular Discharge Activity: Balance Activity w/Rest, Pelvic Rest Prescriptions: Acetaminophen with Codeine [Tylenol #3 Tablet] 1 each PO Q4HP PRN #15 tablet PRN Reason: Home Medications: Prenat 115/Iron Fum/Folic/Dss [ 19 Tablet] 1 tab PO DAILY 04/14/20 Acetaminophen [Tylenol 325 mg Tablet] 650 mg PO Q4HP PRN tablet 04/24/20 Acetaminophen with Codeine [Tylenol #3 Tablet] 1 each PO Q4HP PRN #15 tablet 04/24/20 Hospital Course 59. Maternal Morbidity (serious complications experinced by the mother associated with labor and delivery: None of the above Results Laboratory Results: WBC 11.1 10^3/uL (4.0-10.5) H 04/24/20 06:55 RBC 3.16 10^6/uL (3.72-5.28) L 04/24/20 06:55 Hgb 8.4 g/dL (12.0-15.5) L 04/24/20 06:55 Hct 25.8 % (36.0-47.0) L 04/24/20 06:55 MCV 82 fl (80-97) 04/24/20 06:55 MCH 26.6 pg (27.0-33.4) L 04/24/20 06:55 MCHC 32.7 g/dL (32.0-36.0) 04/24/20 06:55 RDW 14.1 % (11.5-14.0) H 04/24/20 06:55 Plt Count 253 10^3/uL (150-450) 04/24/20 06:55 Lymph % (Auto) 21.7 % (13-45) 04/22/20 11:13 [place] % (Auto) 5.9 % (3-13) 04/22/20 11:13 Eos % (Auto) 0.2 % (0-6) 04/22/20 11:13 Baso % (Auto) 0.4 % (0-2) 04/22/20 11:13 Absolute Neuts (auto) 5.1 10^3/uL (1.7-8.2) 04/22/20 11:13 Absolute Lymphs (auto) 1.5 10^3/uL (0.5-4.7) 04/22/20 11:13 Absolute Monos (auto) 0.4 10^3/uL (0.1-1.4) 04/22/20 11:13 Absolute Eos (auto) 0.0 10^3/uL (0.0-0.6) 04/22/20 11:13 Absolute Basos (auto) 0.0 10^3/uL (0.0-0.2) 04/22/20 11:13 Seg Neutrophils % 71.8 % (42-78) 04/22/20 11:13 Urine Color FREDI 04/19/20 08:45 Urine Appearance SLIGHTLY-CLOUDY 04/19/20 08:45 Urine pH 6.0 (5.0-9.0) 04/19/20 08:45 Ur Specific [place] 1.020 04/19/20 08:45 Urine Protein 30 mg/dL (NEGATIVE) H 04/19/20 08:45 Urine Glucose (UA) NEGATIVE mg/dL (NEGATIVE) 04/19/20 08:45 Urine Ketones NEGATIVE mg/dL (NEGATIVE) 04/19/20 08:45 Urine Blood NEGATIVE (NEGATIVE) 04/19/20 08:45 Urine Nitrite NEGATIVE (NEGATIVE) 04/19/20 08:45 Urine Bilirubin NEGATIVE (NEGATIVE) 04/19/20 08:45 Urine Urobilinogen 4.0 mg/dL (<2.0) H 04/19/20 08:45 Ur Leukocyte Esterase NEGATIVE (NEGATIVE) 04/19/20 08:45 Urine WBC (Auto) 3 /HPF 04/19/20 08:45 Urine RBC (Auto) 1 /HPF 04/19/20 08:45 Squamous Epi Cells Auto 13 /HPF 04/19/20 08:45 Urine Mucus (Auto) MANY /LPF 04/19/20 08:45 Urine Ascorbic Acid NEGATIVE (NEGATIVE) 04/19/20 08:45 Urine Opiates Screen NEGATIVE 04/19/20 08:45 Urine Methadone Screen NEGATIVE 04/19/20 08:45 Ur Barbiturates Screen NEGATIVE 04/19/20 08:45 Ur Phencyclidine Scrn NEGATIVE 04/19/20 08:45 Ur Amphetamines Screen NEGATIVE 04/19/20 08:45 U Benzodiazepines Scrn NEGATIVE 04/19/20 08:45 Urine Cocaine Screen NEGATIVE 04/19/20 08:45 U Marijuana (THC) Screen NEGATIVE 04/19/20 08:45 RPR NONREACTIVE (NONREACTIVE) 04/22/20 11:13 COVID-19 Source See comment 04/19/20 08:45 COVID-19 (CHLOE) Not Detected (Not Detect) 04/19/20 08:45 Blood Type O POSITIVE 04/21/20 09:25 Antibody Screen NEGATIVE 04/21/20 09:25 Plan Plan of Treatment: follow up in 4 weeks at [facility] for post check
[2020-04-24 12:36] VITALS: BP 119/60
== END 2020-04-24 14:15 | disposition home or self-care (01) | DRG 807 ==
LOC: 2S 07:16 → LR 10:48 → 2S 04-23 03:35
PROVIDERS: ADMIT Obstetrics & Gynecology; ATTEND Obstetrics & Gynecology
PROC: 0U7C7ZZ Dilation of Cervix, Via Natural or Artificial Opening (ICD-10-PCS; 2020-04-22)
PROC: 10E0XZZ Delivery of Products of Conception, External Approach (ICD-10-PCS; principal; 2020-04-23)
PROC: 0KQM0ZZ Repair Perineum Muscle, Open Approach (ICD-10-PCS; 2020-04-23)
DX: O69.1XX0 Labor and delivery complicated by cord around neck, with compression, not applicable or unspecified (principal); Z37.0 Single live birth; O32.0XX0 Maternal care for unstable lie, not applicable or unspecified; O40.3XX0 Polyhydramnios, third trimester, not applicable or unspecified; O99.824 Streptococcus B carrier state complicating childbirth; Z3A.40 40 weeks gestation of pregnancy; Z20.828 Contact with and (suspected) exposure to other viral communicable diseases
CPT/HCPCS: 1967; 36415; 59025; 80307; 81001; 85025; 85027; 86592; 86850; 86900; 86901; 87635; 94760; C9803; J2540; J2590; J2795; J3010; J3490; J7060